=== PATIENT | male | born 1965 ===

== ENCOUNTER 2022-06-09 10:57 | Inpatient (IN) | payer BC ==
[~2022-06-09] VITALS: Ht 167.6 cm; Wt 86.0 kg
[2022-06-09 12:00] LABS: BASOPHILS # (AUTO) 0.1 X10'3 (0-0.2); BASOPHILS % (AUTO) 0.8 % (0-1); EOSINOPHILS # (AUTO) 0.1 X10'3 (0-0.9); HEMATOCRIT 46.4 % (42.0-52.0); LYMPHOCYTES # (AUTO) 1.6 X10'3 (1.1-4.8); LYMPHOCYTES % (AUTO) 20.7 % (21-51); MEAN CORPUSCULAR HEMOGLOBIN 23.6 PG (27.0-31.0); MEAN CORPUSCULAR HGB CONC 32.3 g/dL (33.0-36.5); MEAN CORPUSCULAR VOLUME 73.3 FL (78-98); MEAN PLATELET VOLUME 7.6 FL (7.4-10.4); MONOCYTES # (AUTO) 0.9 X10'3 (0-0.9); MONOCYTES % (AUTO) 11.3 % (2-12); NEUTROPHILS % (AUTO) 66.2 % (42-75); PLATELET COUNT 315 X10'3 (140-440); RED BLOOD COUNT 6.33 X10'6 (4.70-6.10); RED CELL DISTRIBUTION WIDTH 19.4 % (11.5-14.5); WHITE BLOOD COUNT 7.5 X10'3 (4.5-11.0)
[2022-06-09 12:13] LABS: ALANINE AMINOTRANSFERASE 44 U/L (12-78); ALBUMIN 4.3 G/DL (3.4-5.0); ALBUMIN/GLOBULIN RATIO 1.1 (1.1-1.5); ALKALINE PHOSPHATASE 66 IU/L (46-116); ANION GAP 11 (8-16); ASPARTATE AMINO TRANSFERASE 23 U/L (10-37); BILIRUBIN,TOTAL 0.6 MG/DL (0.1-1.0); BLOOD UREA NITROGEN 10 MG/DL (7-18); BUN/CREATININE RATIO 9.4 (5.4-32.0); CALCIUM 9.4 MG/DL (8.5-10.1); CHLORIDE 101 MMOL/L (99-107); CREATININE 1.06 MG/DL (0.60-1.10); GLUCOSE 113 MG/DL (70-104); POTASSIUM 4.2 MMOL/L (3.5-5.1); SODIUM 139 MMOL/L (135-145); TOTAL CARBON DIOXIDE 27.2 MMOL/L (24-32); TOTAL PROTEIN 8.2 G/DL (6.4-8.2); eGFR 72 ML/MIN
--- NOTE | 2022-06-09 12:49 | NUR ---
Received pt into room, awake, alert and [id number]. Denies chest pain at this time. Awaiting to be seen by Md.
[2022-06-09 12:51] LABS: ANISOCYTOSIS 2+; MICROCYTOSIS 1+; PLATELET ESTIMATE NORMAL
[2022-06-09 12:52] LABS: SPHEROCYTES FEW
[2022-06-09 12:53] LABS: HYPOCHROMASIA 1+
[2022-06-09] MEDS ORDERED: nitroGLYCERIN 0.4mg/hour patch TD ONE (13:15)
[2022-06-09] MEDS ORDERED: LOSA25TA41 PO (13:40)
[2022-06-09] MEDS ORDERED: ATOR40TA71 PO (13:40)
[2022-06-09] MEDS ORDERED: ASPI-611 PO (13:40)
[2022-06-09] MEDS ORDERED: METF-436 PO (13:40)
[2022-06-09] MEDS ORDERED: ATEN50TA90 PO (13:40)
[2022-06-09] MEDS ORDERED: AMLO5TAB PO (13:40)
[2022-06-09] MEDS ORDERED: OMEP40CA21 PO (13:40)
[2022-06-09] MEDS ORDERED: FLO0.4C PO (13:40)
[2022-06-09] MEDS ORDERED: CLOP75TA33 PO (13:40)
[2022-06-09] MEDS ORDERED: EMPA10TA PO (13:40)
[2022-06-09] MEDS ORDERED: EMPA25TA PO (15:02)
[2022-06-09] MEDS ORDERED: acetaminophen 325mg tablet PO PRN (15:10)
[2022-06-09] MEDS ORDERED: HYDROcodone/acetaminophen 5mg/325mg tablet PO PRN (15:10)
[2022-06-09] MEDS ORDERED: potassium CL 10mEq/100ml bag 100 ML IV PRN (15:10)
[2022-06-09] MEDS ORDERED: magnesium 4gm in 100ml NS 100 ML IV PRN (15:10)
[2022-06-09] MEDS ORDERED: magnesium hydroxide 30ml (MOM) UD suspension PO PRN (15:10)
[2022-06-09] MEDS ORDERED: ondansetron/PF 4mg/2ml inj IV PRN (15:10)
[2022-06-09] MEDS ORDERED: magnesium Cl slow-release 64mg tablet PO PRN ×2 (15:10)
[2022-06-09] MEDS ORDERED: POTASSIUM BICARB 20meq eff tab 20 MEQ TABLET.EFF PO PRN ×2 (15:10)
[2022-06-09] MEDS ORDERED: magnesium 2GM in 50ml NS 50 ML IV PRN (15:10)
[2022-06-09] MEDS ORDERED: morphine 2 MG/ML inj. syringe IV PRN ×2 (15:10)
[2022-06-09] MEDS ORDERED: PERFLUTREN PROTEIN-A MICROSPHR (Optison) 0.22 MG/ML 3ML VIAL IV ONE (15:10)
--- NOTE | 2022-06-09 15:46 | NUR ---
Iv access placed
[2022-06-09 17:48] LABS: MAGNESIUM 1.9 MG/DL (1.5-2.4); POTASSIUM 4.2 MMOL/L (3.5-5.1)
--- NOTE | 2022-06-09 18:29 | NUR ---
Patient's son provided with pt's d/c papers and instruction. He verbalized understanding. Son was given a paper copy of Keflex prescription for pt's UTI. Continues to wait for Transport van.
--- NOTE | 2022-06-09 18:30 | NUR ---
ASSUMED CARE OF PT. A&OX4. PLAN OF CARE DISCUSSED WITH PT. DENIES PAIN OR DISCOMFORT. WILL MONITOR.
--- NOTE | 2022-06-09 18:55 | NUR ---
promotional table spacer PAGER ID: [phone] MESSAGE: ER [id number] ER bed 2 [facility] [place] [id number]
--- NOTE | 2022-06-09 19:50 | NUR ---
Patient in room ORTHO 4021. I have received report from [facility] and had the opportunity to ask questions and assume patient care. Addendum: 06/09/22 at 2317 by Philomena Ba RN Amended: Links added.
[2022-06-09] MEDS: K and/or MAG REPLACEMENT MC SCH (19:56)
[2022-06-09] MEDS: docusate sod 100mg capsule PO SCH (20:00)
[2022-06-09 20:10] VITALS: BP 109/62
[2022-06-09 22:00] VITALS: BP 121/71
--- NOTE | 2022-06-10 05:00 | NUR ---
Problems reprioritized. Patient report given, questions answered & plan of care reviewed with Ragini. Addendum: 06/10/22 at 0649 by Philomena Ba RN Amended: Links added.
[2022-06-10 06:00] VITALS: BP 140/89
--- NOTE | 2022-06-10 06:27 | NUR ---
Patient in room ORTHO 4021. I have received report from Philomena LIMON and had the opportunity to ask questions and assume patient care.
[2022-06-10 06:46] LABS: BASOPHILS % (AUTO) 0.4 % (0-1); EOSINOPHILS # (AUTO) 0.1 X10'3 (0-0.9); EOSINOPHILS % (AUTO) 1.2 % (0-6); HEMATOCRIT 42.5 % (42.0-52.0); HEMOGLOBIN 13.8 g/dl (14.0-17.9); LYMPHOCYTES # (AUTO) 1.4 X10'3 (1.1-4.8); LYMPHOCYTES % (AUTO) 13.4 % (21-51); MEAN CORPUSCULAR HEMOGLOBIN 23.9 PG (27.0-31.0); MEAN CORPUSCULAR HGB CONC 32.4 g/dL (33.0-36.5); MEAN CORPUSCULAR VOLUME 73.8 FL (78-98); MEAN PLATELET VOLUME 7.7 FL (7.4-10.4); MONOCYTES # (AUTO) 0.9 X10'3 (0-0.9); MONOCYTES % (AUTO) 8.2 % (2-12); NEUTROPHILS # (AUTO) 8.1 X10'3 (1.8-7.7); NEUTROPHILS % (AUTO) 76.8 % (42-75); PLATELET COUNT 248 X10'3 (140-440); RED BLOOD COUNT 5.76 X10'6 (4.70-6.10); RED CELL DISTRIBUTION WIDTH 20.1 % (11.5-14.5); WHITE BLOOD COUNT 10.6 X10'3 (4.5-11.0)
--- NOTE | 2022-06-10 07:01 | NUR ---
I paged Dr. Mckeon about patient needing medications reconciled..
[2022-06-10 07:05] LABS: ALBUMIN 3.8 G/DL (3.4-5.0); ANION GAP 7 (8-16); BLOOD UREA NITROGEN 16 MG/DL (7-18); BUN/CREATININE RATIO 14.8 (5.4-32.0); CALCIUM 9.1 MG/DL (8.5-10.1); CHLORIDE 103 MMOL/L (99-107); CHOLESTEROL 124 MG/DL (0-200); CREATININE 1.08 MG/DL (0.60-1.10); GLUCOSE 113 MG/DL (70-104); HDL CHOLESTEROL 41 MG/DL (35-60); LDL CHOLESTEROL 60 MG/DL (50-100); MAGNESIUM 1.8 MG/DL (1.5-2.4); POTASSIUM 4.1 MMOL/L (3.5-5.1); SODIUM 139 MMOL/L (135-145); TOTAL CARBON DIOXIDE 29.2 MMOL/L (24-32); TRIGLYCERIDES 127 MG/DL (20-135); eGFR 70 ML/MIN
[2022-06-10] MEDS: K and/or MAG REPLACEMENT MC SCH ×2 (08:00→20:00)
[2022-06-10] MEDS: docusate sod 100mg capsule PO SCH ×2 (08:00→20:00)
[2022-06-10 08:46] LABS: HEMOGLOBIN A1C 6.7 % (4.5-6.2)
[2022-06-10 09:37] LABS: ANISOCYTOSIS 3+; MICROCYTOSIS 1+; PLATELET ESTIMATE NORMAL
[2022-06-10] MEDS: atorvastatin 20mg tablet PO SCH (09:51)
[2022-06-10] MEDS: pantoprazole 40mg Tablet.DR PO SCH (09:51)
[2022-06-10] MEDS: aspirin 81mg, enteric-coated 1 TAB TABLET.DR PO SCH (09:51)
[2022-06-10] MEDS: amLODIPine 5mg tablet PO SCH ×2 (09:51→20:08)
[2022-06-10] MEDS: tamsulosin 0.4mg capsule PO SCH (09:51)
[2022-06-10] MEDS: clopidogrel 75mg tablet PO SCH (09:51)
[2022-06-10] MEDS: losartan 25mg tablet PO SCH (09:52)
[2022-06-10 10:00] VITALS: BP 117/77
[2022-06-10] MEDS: atenolol 50mg tablet PO SCH (10:20)
[2022-06-10] MEDS ORDERED: aminophylline 500mg/20ml vial IV PRN (15:50)
[2022-06-10] MEDS ORDERED: regadenoson 0.4mg/5ml syringe IV PRN (15:50)
[2022-06-10] MEDS ORDERED: metoprolol tartrate 1mg/ml inj IV PRN (15:50)
[2022-06-10] MEDS ORDERED: nitroGLYCERIN 0.4mg SUBLingual tab SL PRN (15:50)
[2022-06-10] MEDS: EMPAGLIFLOZIN 25 MG TABLET PO SCH (17:17)
[2022-06-10 18:00] VITALS: BP 110/72
--- NOTE | 2022-06-10 18:20 | NUR ---
Patient in room ORTHO 4021. I have received report from Ragini LIMON and had the opportunity to ask questions and assume patient care. Addendum: 06/10/22 at 1909 by Philomena Ba RN Amended: Links added.
--- NOTE | 2022-06-10 18:26 | NUR ---
Patient report given to Philomena LIMON
[2022-06-10 22:00] VITALS: BP 125/61
[2022-06-11] VITALS (8 sets, daily range): BP systolic 108–153; BP diastolic 60–99
--- NOTE | 2022-06-11 06:37 | NUR ---
Problems reprioritized. Patient report given, questions answered & plan of care reviewed with Mikayla LIMON. Addendum: 06/11/22 at 0638 by Philomena Ba RN Amended: Links added.
[2022-06-11 07:12] LABS: BASOPHILS % (AUTO) 0.7 % (0-1); EOSINOPHILS # (AUTO) 0.1 X10'3 (0-0.9); HEMATOCRIT 43.4 % (42.0-52.0); HEMOGLOBIN 14.1 g/dl (14.0-17.9); LYMPHOCYTES # (AUTO) 1.3 X10'3 (1.1-4.8); LYMPHOCYTES % (AUTO) 19.6 % (21-51); MEAN CORPUSCULAR HEMOGLOBIN 23.9 PG (27.0-31.0); MEAN CORPUSCULAR HGB CONC 32.6 g/dL (33.0-36.5); MEAN CORPUSCULAR VOLUME 73.4 FL (78-98); MEAN PLATELET VOLUME 7.7 FL (7.4-10.4); MONOCYTES # (AUTO) 0.6 X10'3 (0-0.9); MONOCYTES % (AUTO) 9.1 % (2-12); NEUTROPHILS # (AUTO) 4.6 X10'3 (1.8-7.7); NEUTROPHILS % (AUTO) 69.6 % (42-75); PLATELET COUNT 251 X10'3 (140-440); RED BLOOD COUNT 5.92 X10'6 (4.70-6.10); RED CELL DISTRIBUTION WIDTH 19.7 % (11.5-14.5); WHITE BLOOD COUNT 6.6 X10'3 (4.5-11.0)
[2022-06-11 07:30] LABS: ANION GAP 10 (8-16); BLOOD UREA NITROGEN 12 MG/DL (7-18); BUN/CREATININE RATIO 13.8 (5.4-32.0); CALCIUM 9.1 MG/DL (8.5-10.1); CHLORIDE 103 MMOL/L (99-107); CREATININE 0.87 MG/DL (0.60-1.10); GLUCOSE 122 MG/DL (70-104); MAGNESIUM 1.8 MG/DL (1.5-2.4); POTASSIUM 3.8 MMOL/L (3.5-5.1); SODIUM 141 MMOL/L (135-145); eGFR 90 ML/MIN
[2022-06-11] MEDS: aspirin 81mg, enteric-coated 1 TAB TABLET.DR PO SCH (07:46)
[2022-06-11] MEDS: losartan 25mg tablet PO SCH (07:47)
[2022-06-11] MEDS: amLODIPine 5mg tablet PO SCH (07:47)
[2022-06-11] MEDS: clopidogrel 75mg tablet PO SCH (07:47)
[2022-06-11] MEDS: pantoprazole 40mg Tablet.DR PO SCH (07:47)
[2022-06-11] MEDS: tamsulosin 0.4mg capsule PO SCH (07:47)
[2022-06-11] MEDS: atorvastatin 20mg tablet PO SCH (07:48)
[2022-06-11] MEDS: atenolol 50mg tablet PO SCH (07:48)
[2022-06-11] MEDS: EMPAGLIFLOZIN 25 MG TABLET PO SCH (07:49)
[2022-06-11] MEDS: docusate sod 100mg capsule PO SCH (07:50)
[2022-06-11] MEDS: K and/or MAG REPLACEMENT MC SCH (08:00)
[2022-06-11] MEDS ORDERED: atenolol 50mg tablet PO SCH (08:00)
[2022-06-11] MEDS ORDERED: aminophylline inj. 0 ML IV ONE (08:56)
[2022-06-11] MEDS ORDERED: NITR0.4T51 SL (13:12)
== END 2022-06-11 16:00 | disposition home or self-care (01) | DRG 282 ==
LOC: ER 10:58 → ED HOLD 15:16 → ORTHO 4S 20:12
PROVIDERS: ADMIT Internal Medicine; ATTEND Internal Medicine
PROC: 4A02XM4 Measurement of Cardiac Total Activity, External Approach (ICD-10-PCS; principal; 2022-06-11)
PROC: 3E033HZ Introduction of Radioactive Substance into Peripheral Vein, Percutaneous Approach (ICD-10-PCS; 2022-06-11)
DX: I21.4 Non-ST elevation (NSTEMI) myocardial infarction (principal); E11.9 Type 2 diabetes mellitus without complications; E78.00 Pure hypercholesterolemia, unspecified; I10 Essential (primary) hypertension; K21.9 Gastro-esophageal reflux disease without esophagitis; I25.119 Atherosclerotic heart disease of native coronary artery with unspecified angina pectoris; N40.0 Benign prostatic hyperplasia without lower urinary tract symptoms; Z79.84 Long term (current) use of oral hypoglycemic drugs; Z80.42 Family history of malignant neoplasm of prostate; Z82.49 Family history of ischemic heart disease and other diseases of the circulatory system; Z95.5 Presence of coronary angioplasty implant and graft; Z79.899 Other long term (current) drug therapy; Z79.82 Long term (current) use of aspirin
CPT/HCPCS: 36415; 71045; 78452; 80048; 80053; 80061; 82948; 83036; 83735; 83880; 84132; 84484; 85008; 85025; 87081; 93017; 93306; 99285; A9500; G0378; J0280; J2785